=== PATIENT | male | born 1995 | race African-American/Black ===

== ENCOUNTER 2018-11-06 03:30 | Emergency (ER) | payer SELFPAY ==
[~2018-11-06] VITALS: Ht 185.4 cm; Wt 98.4 kg
[2018-11-06 03:36] VITALS: BP 142/79
[2018-11-06] MEDS ORDERED: FLUORESCEIN SOD 1 MG TEST STRIP LEFTEYE ONE (04:15)
== END 2018-11-06 04:56 | disposition home or self-care (01) ==
LOC: ER 03:30
DX: T15.02XA Foreign body in cornea, left eye, initial encounter (principal); X58.XXXA Exposure to other specified factors, initial encounter; Y93.89 Activity, other specified; Y99.8 Other external cause status; Y92.89 Other specified places as the place of occurrence of the external cause
CPT/HCPCS: 65220